=== PATIENT | female | born 1990 | race Caucasian/White ===

== ENCOUNTER 2016-07-09 20:57 | Emergency (ER) | payer OTHER ==
[~2016-07-09] VITALS: Ht 172.7 cm; Wt 120.2 kg
[~2016-07-09 20:57] MED LIST: DELTASONE20 MG PO; ZITHROMAX250 M2 PO
[2016-07-09] MEDS ORDERED: ATIVAN1 M1 PO (21:27)
[2016-07-09] MEDS ORDERED: BLISOVI FE 1.51 EACH PO (21:28)
--- NOTE | 2016-07-09 21:46 | ED UPPER/LOWER EXTREMITY COMPL ---
History of Present Illness General Chief Complaint: Upper Extremity Problem Stated Complaint: RT ARM PAIN X1 WEEK Source: patient Exam Limitations: no limitations Vital Signs & Intake/Output Vital Signs & Intake/Output Vital Signs Date Time Temp Pulse Resp B/P Pulse O2 O2 Flow FiO2 Ox Delivery Rate 07/09 2240 97.4 90 18 140/80 98 Room Air 07/092 97.3 82 18 137/83 98 Room Air Allergies Coded Allergies: animal dander (MAY TRIGGER ASTHMA 07/09/16) Reconcile Medications Lorazepam (Ativan) 1 MG TABLET 1 TAB PO TID ANXIETY (Reported) Naproxen (Naprosyn) 500 MG TABLET 1 TAB PO BID PRN PAIN/INFLAMMATION Norethindrone-E.estradiol-Iron (Blisovi Fe 1.5-30 Tablet) (Unknown Strength) TABLET 1 TAB PO DAILY CONTROL (Reported) Tylenol With Codeine (Tylenol With Codeine #3 Tablet) 300 MG-30 MG TABLET 1 TAB PO Q4-6 PRN PRN PAIN Triage Note: PT STATES THAT HER R ARM HAS BEEN ACHEY FOR THE PAST WEEK DENIES INJURY. CALLED HER PMD WHO TOLD HER TO COME TO ER Triage Nurses Notes Reviewed? 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 She states that she does a lot of repetitive motion at work, lifting heavy objects, using machinery with her right arm mostly and thinks that the symptoms may be work-related but does not recall any specific injury that occurred at work. She has pain with overhead use of the arm and was lifting the arm into the shoulder and radiates down the arm. She denies any neck pain. She is taking over-the- counter anti-inflammatory medication with minimal relief. It is better with rest. She has no weakness or numbness in the arm or wrist hand or elbow. She has no headaches or confusion. No rashes. No previous trauma to the area. (ELENA BRANNON) Past History Travel History Traveled to [place] past 21 day No Medical History Any Pertinent Medical History? 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 No (ELENA BRANNON) Review of Systems Review of Systems Constitutional: Reports: see HPI. EENTM: Reports: no symptoms. Respiratory: Reports: no symptoms. Cardiovascular: Reports: no symptoms. Gastrointestinal/Abdominal: Reports: no symptoms. Genitourinary: Reports: no symptoms. Musculoskeletal: Reports: see HPI. Skin: Reports: no symptoms. Neurological/Psychological: Reports: no symptoms. Hematologic/Endocrine: Reports: no symptoms. Immunological: Reports: no symptoms. All Other Systems: Reviewed and Negative (ELENA BRANNON) Physical Exam Physical Exam General Appearance: well developed/nourished Comments: Well-developed well-nourished no apparent distress. HEENT: Atraumatic, extraocular motion intact Neck: Supple, no lymphadenopathy Back: Nontender Respiratory: No respiratory distress Extremities: No edema, full range of motion Neuro: Alert and oriented x3 Psych: Mood affect normal, normal memory normal judgment. Skin: Warm and dry, no rash on exposed skin Right upper extremity, right shoulder: Tenderness to the anterior and lateral proximal humeral region, increased pain with range of motion of the shoulder overhead, positive Avina Erickson test with pain, mild impingement signs noted. Supraspinatus strength is 5 out of 5, no weakness of the right upper extremity, range of motion is full elbow wrist and hand, wrist exam is benign, no snuffbox tenderness, neurovascular intact right upper extremity, no skin surface changes. (ELENA BRANNON) Progress Differential Diagnosis: arterial insufficiency, cellulitis, CHF, compartment syndrome, contusion, dislocation, DVT, fracture, gout, septic arthritis, sprain, tendon injury Plan of Care: Orders Procedure Date/time Status XRY-SHOULDER COMPLETE-RIGHT 07/09 2140 Active Diagnostic Imaging: Viewed by Me: Radiology Read (r shoulder). Discussed w/RAD: Radiology Read (r shoulder). Radiology Impression: no acute abnormality, no fracture, no dislocation, no foreign body seen Comments: Likely rotator cuff tendinitis, x-ray is unremarkable, we'll treat with recommendation rest, NSAIDs, avoid overhead use and orthopedic follow-up. (ELENA BRANNON) Departure Departure Disposition: HOME OR SELF CARE Condition: Stable Clinical Impression Primary Impression: Right rotator cuff tendonitis Referrals: BLUE AHUMADA,MARCI BAKER MD,TONNY Allen (PCP/Family) Additional Instructions: Rest, ice, avoid overhead use Take Naprosyn for inflammation and Tylenol with codeine for pain Orthopedic follow-up, call to make an appointment Gradual return to activity as tolerated. Departure Forms: Customer Survey General Discharge Information Prescriptions: Current Visit Scripts Naproxen (Naprosyn) 1 TAB PO BID PRN PAIN/INFLAMMATION #30 TAB Tylenol With Codeine (Tylenol With Codeine #3 Tablet) 1 TAB PO Q4-6 PRN PRN PAIN #12 TAB (ELENA BRANNON) PA/MAYONNAISE MIXER Co-Sign Statement Statement: ED Attending supervision documentation- [] I saw and evaluated the patient. I have also reviewed all the pertinent lab results and diagnostic results. I agree with the findings and the plan of care as documented in the PA's/MAYONNAISE MIXER's documentation. [x] I have reviewed the ED Record and agree with the PA's/MAYONNAISE MIXER's documentation. [] Additions or exceptions (if any) to the PAs/MAYONNAISE MIXER's note and plan are summarized below: [] (EUSEBIO AHUMADA,BAYLEE Bennett)
[2016-07-09] MEDS ORDERED: TYLENOL WITH C1 EACH PO (22:32)
[2016-07-09] MEDS ORDERED: NAPROSYN500 M1 PO (22:32)
--- NOTE | 2016-07-09 22:38 | RADIOLOGY REPORT ---
EXAMINATION: XR SHOULDER, RIGHT CLINICAL INFORMATION: Right shoulder pain COMPARISON: None. TECHNIQUE: 4 views. FINDINGS: There are no fractures or dislocations. No bone, joint or soft tissue abnormality is demonstrated. IMPRESSION: Unremarkable examination.
[2016-07-09 22:40] VITALS: BP 140/80
== END 2016-07-09 23:27 ==
LOC: ERH 20:57
DX: M75.81 Other shoulder lesions, right shoulder (principal)
CPT/HCPCS: 73030-RT

== ENCOUNTER 2017-08-10 02:48 | Emergency (ER) | payer OTHER ==
[~2017-08-10] VITALS: Ht 172.7 cm; Wt 127.0 kg
[~2017-08-10 02:48] MED LIST changes: +ATIVAN1 M1 PO; +BLISOVI FE 1.51 EACH PO; +FLOMAX0.4 M1 PO; +IBUPROFEN600 M1 PO; +NAPROSYN500 M1 PO; +PERCOCET 5-3251 EACH PO; +TYLENOL WITH C1 EACH PO
--- NOTE | 2017-08-10 02:58 | ED GI/GU/ABDOMINAL COMPLAINT ---
History of Present Illness General Chief Complaint: Female Urogenital Problems Stated Complaint: "KIDNEY STONES SINCE 2199 YESTERDAY" Source: patient, old records Exam Limitations: no limitations Vital Signs & Intake/Output Vital Signs & Intake/Output Vital Signs Date Time Temp Pulse Resp B/P B/P Pulse O2 O2 Flow FiO2 Mean Ox Delivery Rate 08/10 0326 98 Room Air 08/10 0256 99.6 108 18 145/90 98 Room Air Allergies Coded Allergies: amoxicillin (vaginal yeast infection 07/27/17) animal dander (MAY TRIGGER ASTHMA 07/09/16) Reconcile Medications Ibuprofen 800 MG TABLET 1 TAB PO TID PRN PAIN Ibuprofen 600 MG TABLET 1 TAB PO Q6PRN PRN pain with food LORazepam (Ativan) 1 MG TABLET 1 TAB PO TID ANXIETY (Reported) Naproxen (Naprosyn) 500 MG TABLET 1 TAB PO BID PRN PAIN/INFLAMMATION Norethindrone-E.estradiol-Iron (Blisovi Fe 1.5-30 Tablet) (Unknown Strength) TABLET 1 TAB PO DAILY CONTROL (Reported) Oxycodone HCl/Acetaminophen (Percocet 5-325 MG Tablet) 5 MG-325 MG TABLET 1 TAB PO BID BREAKTHROUGH PAIN Oxycodone HCl/Acetaminophen (Percocet 5-325 MG Tablet) 5 MG-325 MG TABLET 1 TAB PO Q6P PRN severe pain Sulfamethoxazole/Trimethoprim (Bactrim Ds Tablet) 800 MG-160 MG TABLET 1 TAB PO BID PYELONEPHRITIS Tamsulosin HCl (Flomax) 0.4 MG CAP.ER.24H 1 CAP PO DAILY kidney stone Tylenol With Codeine (Tylenol With Codeine #3 Tablet) 300 MG-30 MG TABLET 1 TAB PO Q4-6 PRN PRN PAIN Triage Note: PT TO ER C/C 1 DAY HX OF RIGHT FLANK PAIN 04/15, STATES PAIN WOKE HER UP FROM SLEEP. DENIES DYSURIA. DENIES N/V/D. Triage Nurses Notes Reviewed? yes ? N Is pt currently ? No Onset: Abrupt Duration: hour(s): (several) Timing: multiple episodes today Location: right flank No Modifying Factors: none HPI: This is a 27-year-old female who presents via chief complaint of right flank pains 10:00 this evening. History is similar symptoms a few weeks ago was seen in the ER and diagnosed with kidney stones. Patient states she ran out of her pain medications and did not follow-up with urologist. Tonight the pain started again as sharp as it was before. Patient denies any fever or chills or shakes. No nausea or vomiting. Past History Travel History Traveled to [place] past 21 day No Medical History Any Pertinent Medical History? 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 No Review of Systems Review of Systems Constitutional: Denies: chills, fever. EENTM: Reports: no symptoms. Respiratory: Reports: no symptoms. Cardiovascular: Reports: no symptoms. GI: Denies: abdominal pain, nausea, vomiting. Genitourinary: Reports: frequency. Denies: discharge, dysuria. Musculoskeletal: Reports: back pain. Skin: Reports: no symptoms. Neurological/Psychological: Reports: no symptoms. Hematologic/Endocrine: Denies: bruising, bleeding, polyuria, polydipsia. Immunologic/Allergic: Reports: no symptoms. All Other Systems: Reviewed and Negative Physical Exam Physical Exam General Appearance: well developed/nourished, alert, awake, anxious, mild distress, moderate distress, obese Head: atraumatic, normal appearance Eyes: Bilateral: normal appearance, PERRL, EOMI. Ears, Nose, Throat, Mouth: hearing grossly normal, moist mucous membrane Neck: normal inspection, supple, full range of motion Respiratory: normal breath sounds, chest non-tender, no respiratory distress Cardiovascular: regular rate/rhythm Peripheral Pulses: 2+ radial (R), 2+ radial (L) Gastrointestinal: normal bowel sounds, soft, non-tender Back: CVA tenderness (R) Extremities: normal range of motion Neurologic/Psych: no motor/sensory deficits, awake, alert, oriented x 3, normal gait Skin: intact, normal color, warm/dry Core Measures ACS in differential dx? No Sepsis Present: No Sepsis Focused Exam Completed? No Progress Differential Diagnosis: Mariola-Liliya tear, UTI/pyelo Plan of Care: Orders Procedure Date/time Status Add-on Test (ER Only) 08/10 347 Active Add-on Test (ER Only) 08/10 345 Active BLOOD CULTURE 08/10 344 Active LACTIC ACID 08/10 320 Complete CULTURE,URINE 08/10 309 Active COMPREHENSIVE METABOLIC PANEL 08/10 309 Complete CBC WITHOUT DIFFERENTIAL 08/10 309 Complete URINE 08/10 256 Complete URINALYSIS 08/10 256 Complete Laboratory Tests 08/10/17 032: Anion Gap 15, Estimated GFR 60, BUN/Creatinine Ratio 10.9, Glucose 119 H, Lactic Acid 1.7, Calcium 9.7, Total Bilirubin 0.4, AST 17, ALT 36, Alkaline Phosphatase 84, Total Protein 7.6, Albumin 4.3, Globulin 3.3, Albumin/Globulin Ratio 1.3, CBC w Diff NO MAN DIFF REQ, RBC 4.71, MCV 91.7, MCH 30.0, MCHC 32.8 L, RDW 13.0, MPV 8.8, Gran % 74.4, Lymphocytes % 15.0 L, Monocytes % 8.9, Eosinophils % 1.6, Basophils % 0.1, Absolute Granulocytes 12.8 H, Absolute Lymphocytes 2.6, Absolute Monocytes 1.5 H, Absolute Eosinophils 0.3, Absolute Basophils 0 08/10/17309: Urinalysis HEAVY H, Urine Color YEL, Urine Clarity HAZY H, Urine pH 6.0, Ur Specific [place] 1.025, Urine Protein NEG, Urine Ketones NEG, Urine Nitrite NEG, Urine Bilirubin NEG, Urine Urobilinogen 0.2, Ur Leukocyte Esterase MOD H, Ur Microscopic SEDIMENT EXAMINED, Urine RBC 3-5, Urine WBC 50-75 H, Ur Epithelial Cells MANY H, Urine Bacteria MOD H, Urine Hemoglobin MOD H, Urine Glucose NEG , Urine Test NEGATIVE Microbiology 08/10 0438 BLOOD: Blood Culture - RECD 08/10 422 BLOOD: Blood Culture - RECD 08/10 309 URINE ROUT: Urine Culture - RECD RECENT IMAGING DONE. WILL CHECK CRE, UA. 5:10 am pain is almost resolved. No fever, non toxic appearing. iv ROCEPHIN, BLOOD CULTUERS ORDERED. STABLE FOR DISHARGE AT THIS TIME. She will call Dr. Granados on Friday and is aware to return for any fever 101 or greater, chills, vomiting or worsening symptoms. Initial ED EKG: none Departure Departure Time of Disposition: 516 Disposition: HOME OR SELF CARE Condition: Stable Clinical Impression Primary Impression: Pyelonephritis Secondary Impressions: Renal colic on right side Referrals: Kavon AHUMADA,Cain Funes MD,Mulugeta Allen (PCP/Family) Additional Instructions: Take the bactrim, percocet and ibuprofen as directed Use the urinary strainer as directed Drink plenty of fluids Call Dr. Granados on Friday for an appointment return immediately to the ER for fever, chills, vomiting, worsening symptoms Departure Forms: Customer Survey General Discharge Information Prescriptions: Current Visit Scripts Sulfamethoxazole/Trimethoprim (Bactrim Ds Tablet) 1 TAB PO BID #20 TAB Ibuprofen 1 TAB PO TID PRN PAIN #30 TAB Oxycodone HCl/Acetaminophen (Percocet 5-325 MG Tablet) 1 TAB PO BID #12 TAB
[2017-08-10 03:31] LABS: ABSOLUTE BASOPHIL COUNT 0 /CUMM (0.0-0.2); ABSOLUTE EOSINOPHIL COUNT 0.3 /CUMM (0.0-0.7); ABSOLUTE GRANULOCYTE CT 12.8 /CUMM (1.4-6.5); ABSOLUTE LYMPH COUNT 2.6 /CUMM (1.2-3.4); ABSOLUTE MONOCYTE COUNT 1.5 /CUMM (0.10-0.60); BASOPHIL % 0.1 % (0.0-2.0); EOSINOPHIL % 1.6 % (0-5); GRANULOCYTE % 74.4 % (42.2-75.2); HEMATOCRIT 43.2 % (37-47); MEAN CORPUSCULAR HGB CONC 32.8 G/DL (33.0-37.0); MEAN CORPUSCULAR VOLUME 91.7 FL (81.0-99.0); MEAN PLATELET VOLUME 8.8 FL (7.4-10.4); PLATELET COUNT 320 /CUMM (130-400); RED BLOOD CELL CT 4.71 /CUMM (4.20-5.40); WHITE BLOOD CELL COUNT 17.2 /CUMM (4.8-10.8)
[2017-08-10] MEDS ORDERED: IBUPROFEN800 M1 PO (05:18)
[2017-08-10] MEDS ORDERED: PERCOCET 5-3251 EACH PO (05:18)
[2017-08-10] MEDS ORDERED: BACTRIM DS TAB1 EACH PO (05:18)
[2017-08-10 05:42] VITALS: BP 138/56
[2017-08-13] MEDS ORDERED: PROAIR HFA8.5 GM INH (19:59)
== END 2017-08-10 05:43 ==
LOC: ERH 02:48
PROVIDERS: Emergency Medicine
DX: N12 Tubulo-interstitial nephritis, not specified as acute or chronic (principal); N23 Unspecified renal colic
CPT/HCPCS: 81001; 81025; 87040; 87086; 96361; 96374; 96375; J0696; J1885

== ENCOUNTER → 2017-08-15 | Day surgery (SDC) | payer OTHER ==
[~2017-08-15] VITALS: Ht 172.7 cm; Wt 127.0 kg
[~2017-08-15] MED LIST changes: +BACTRIM DS TAB1 EACH PO; +IBUPROFEN800 M1 PO; +PROAIR HFA8.5 GM INH
--- NOTE | 2017-08-15 11:13 | Operative Report ---
Operative/Inv Procedure Report Surgery Date: 08/15/17 Name of Procedure: bilateral ureteroscopy with stone removal and stent placement Pre-Operative Diagnosis: bilateral kidney stones with right renal colic Post-Operative Diagnosis: same Estimated Blood Loss: scant Surgeon/Pharmacy Clinical Coordinator: Maria Esther Lugo MD Anesthesia: laryngeal mask airway Drains: stent Complications: none Condition: stable Operative Indication: bilateral kidney stones with right renal colic Operative/Procedure Note Note: 27 yo female with a hx of right renal colic. She was found to have bilateral kidney stones on CT scan, 4mm distal ureteral stone with hydro on the right and 2 3mm stones on the left UP. She was given th risks, benefits and risks of the surgery in the office and then again in the holding area. She was consented after all questions were answered. She was taken to the operating room and placed in the supine position. LMA anesthesia was given and IV antibiotics infused after time out was performed. She was placed in the dorsal lithotomy position and a cystoscopy was performed. The bladder was globally inspected and no abnormalities were seen and her ureteral orifices were easily identified. Sensor guidewire was placed in the right side followed by a semi-rigid utereoscope. The stone was identified in the mid ureter and lasered before removing the fragments with a zero tip basket. A stent 6x24 cm was left in place using the Sensor guidewire to place it with cystoscopy. Attention was then turned to the left side. A Sensor wire was then placed and a Super stiff wire. The Superstiff wire was used to place an ureteral access sheath 25cm. A flexible ureteroscope was then placed into the renal pelvis and the "3mm stones" were identified in the upper pole. These both were larger and needed to be lasered as well. These were removed in succession after being freagmented. A stent 6x26 cm was placed. The stones were sent to pathology for stone analysis. The bladder was emptied. Patient tolerated the procedure well and was transferred to the recovery room in stable condition. Findings: right distal 4mm stone with hydronephrosis left renal UP stones x2, 4mm in size jagged Discharge Disposition: PACU
--- NOTE | 2017-08-15 14:45 | RADIOLOGY REPORT ---
EXAMINATION: Intraoperative fluoroscopy CLINICAL INFORMATION: Bilateral ureteroscopically with lithotripsy and stent insertion COMPARISON: CT abdomen and pelvis 07/27/2017 TECHNIQUE: Intraoperative fluoroscopy was provided for use by Dr. Lugo. A total of 10 images were saved to PACS. TOTAL FLUOROSCOPIC TIME: 18 seconds FINDINGS\E\IMPRESSION: Intraoperative fluoroscopy provided for use by Dr. Lugo. Please see operative note for detailed findings.
== END ==
LOC: STS 01:37
DX: N13.2 Hydronephrosis with renal and ureteral calculous obstruction (principal); F17.200 Nicotine dependence, unspecified, uncomplicated
CPT/HCPCS: 74018; 81025; C2617; J0131; J0690; J2250; J2405

== ENCOUNTER → 2017-08-22 | Day surgery (SDC) | payer OTHER ==
[~2017-08-22] VITALS: Ht 172.7 cm; Wt 121.6 kg
--- NOTE | 2017-08-22 17:09 | Operative Report ---
Operative/Inv Procedure Report Surgery Date: 08/22/17 Name of Procedure: left ureteroscopy with migrated stent removal Pre-Operative Diagnosis: migrated left ureteral stent Post-Operative Diagnosis: same Estimated Blood Loss: scant Surgeon/Wardrobe Consultant: Maria Esther Lugo MD Anesthesia: local monitored anesthesi Specimens: left ureteral stent Complications: none Condition: stable Operative Indication: migrated left ureteral stent after URS the previous week, unable to remove stent in office bc not visible with cystoscopy Operative/Procedure Note Note: This an operative dictation on patient Greyson Zuñiga. She was seen in the office for bilateral stent removal earlier in the week after having ureteroscopy with laser lithotripsy of bilateral stones. The right stent was easily removed however the left stent had migrated up the ureter. The stent was no longer visible cystoscopically. One blind attempt was performed in the office without success. As result the patient was consented for ureteroscopy and the operative theater with stent removal under direct visualization. She was given the risks benefits and alternatives and informed that it was much sphincter safer to do this in the operating room with visualization. All questions were answered. Patient was identified in the holding area and brought to the operating room placed on the operating table in the supine position. IV sedation was given. No IV antibiotics were given. She was prepped and draped in the standard sterile fashion. Semirigid ureteroscope was placed into the bladder and gently placed into the left ureteral orifice. The distal portion of the stent was seen in the distal ureter. This was grasped and gently removed without difficulty. The bladder was emptied and the patient was cleaned of the Betadine solution. She was transferred to the recovery room stable condition. The stent was sent off as a specimen. Findings: migrated ureteral stent visible with ureteroscope and removed with grasper Discharge Disposition: Same Day Admissions
== END ==
LOC: STS 02:36
DX: T83.89XA Other specified complication of genitourinary prosthetic devices, implants and grafts, initial encounter (principal); Z87.442 Personal history of urinary calculi; F17.200 Nicotine dependence, unspecified, uncomplicated; J45.909 Unspecified asthma, uncomplicated
CPT/HCPCS: 81025; J0690; J2250

== ENCOUNTER 2017-09-01 05:37 | Emergency (ER) | payer OTHER ==
[~2017-09-01] VITALS: Ht 172.7 cm; Wt 120.2 kg
--- NOTE | 2017-09-01 05:42 | ED DYSPNEA/ASTHMA COMPLAINT ---
History of Present Illness General Chief Complaint: Wheezing/Asthma Stated Complaint: BIBA WHEEZING Source: patient, old records Exam Limitations: no limitations Vital Signs & Intake/Output Vital Signs & Intake/Output Vital Signs Date Time Temp Pulse Resp B/P B/P Pulse O2 O2 Flow FiO2 Mean Ox Delivery Rate 09/01 0544 97.5 96 20 156/84 97 Room Air Allergies Coded Allergies: amoxicillin (vaginal yeast infection 09/01/17) animal dander (MAY TRIGGER ASTHMA 09/01/17) Reconcile Medications Albuterol Sulfate (Proair Hfa) 90 MCG HFA.AER.AD 2 PUF INH AD PRN ASTHMA ( Reported) Ibuprofen 800 MG TABLET 1 TAB PO TID PRN PAIN LORazepam (Ativan) 1 MG TABLET 1 TAB PO TID ANXIETY (Reported) Norethindrone-E.estradiol-Iron (Blisovi Fe 1.5-30 Tablet) (Unknown Strength) TABLET 1 TAB PO DAILY CONTROL (Reported) Oxycodone HCl/Acetaminophen (Percocet 5-325 MG Tablet) 5 MG-325 MG TABLET 1 TAB PO BID BREAKTHROUGH PAIN Prednisone 10 MG TABLET 1 TAB PO DAILY ASTHMA TAKE 3 TABS FOR 3 DAYS THEN TAKE 2 TABS FOR 3 DAYS THEN TAKE 1 TAB FOR 3 DAYS Sulfamethoxazole/Trimethoprim (Bactrim Ds Tablet) 800 MG-160 MG TABLET 1 TAB PO BID PYELONEPHRITIS Triage Nurses Notes Reviewed? yes HPI: Patient presents with an asthma exacerbation started earlier this afternoon. Positive shortness of breath. Positive chest tightness. No nausea or vomiting. Positive nonproductive cough. No fevers or chills. She took 20 mg of prednisone and still does not feel also comes in for evaluation. Past History Travel History Traveled to [place] past 21 day No Medical History Any Pertinent Medical History? 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 No Review of Systems Review of Systems Constitutional: Reports: no symptoms. EENTM: Reports: no symptoms. Respiratory: Reports: see HPI, cough, short of breath, wheezing. Cardiovascular: Reports: no symptoms. GI: Reports: no symptoms. Genitourinary: Reports: no symptoms. Musculoskeletal: Reports: no symptoms. Skin: Reports: no symptoms. Neurological/Psychological: Reports: no symptoms. Hematologic/Endocrine: Reports: no symptoms. Immunologic/Allergic: Reports: no symptoms. All Other Systems: Reviewed and Negative Physical Exam Physical Exam General Appearance: well developed/nourished, alert, awake, mild distress Head: atraumatic, normal appearance Eyes: Bilateral: PERRL, EOMI. Ears, Nose, Throat: normal pharynx, normal ENT inspection, hearing grossly normal Neck: normal inspection, supple, full range of motion, NO JVD Respiratory: decreased breath sounds, wheezing, respiratory distress Cardiovascular: regular rate/rhythm, normal peripheral pulses Neurologic/Psych: no motor/sensory deficits, awake, alert, oriented x 3 Skin: intact, normal color, warm/dry Core Measures ACS in differential dx? No CVA/TIA Diagnosis No Sepsis Present: No Sepsis Focused Exam Completed? No Progress Differential Diagnosis: asthma, bronchitis Plan of Care: Current Medications Sig/Fabiola Start time Last Medication Dose Stop Time Status Admin Albuterol Sulfate 3 ML ONCE ONE 09/01 599 UNVr (Proventil) 09/01 600 Ipratropium Page 2.5 ML ONCE ONE 09/01 599 UNVr (Atrovent) 09/01 600 Prednisone 40 MG ONCE ONE 09/01 599 UNVr 09/01 600 Diagnostic Imaging: Viewed by Me: Radiology Read. Discussed w/RAD: Radiology Read. Initial ED EKG: none Departure Departure Disposition: HOME OR SELF CARE Condition: Stable Clinical Impression Primary Impression: Asthma Referrals: Mulugeta Funes MD, V. (PCP/Family) Additional Instructions: TAKE PREDNISONE PRESCRIBED RETURN IF SYMPTOMS WORSEN OR FOR ANY CONCERNS Departure Forms: Customer Survey General Discharge Information Prescriptions: Current Visit Scripts Prednisone 1 TAB PO DAILY #18 TAB TAKE 3 TABS FOR 3 DAYS THEN TAKE 2 TABS FOR 3 DAYS THEN TAKE 1 TAB FOR 3 DAYS Critical Care Note Critical Care Note Critical Care Time: non-applicable
[2017-09-01 05:44] VITALS: BP 156/84
[2017-09-01] MEDS ORDERED: PREDNISONE10 M2 PO (06:15)
== END 2017-09-01 06:45 ==
LOC: ERH 05:37
DX: J45.909 Unspecified asthma, uncomplicated (principal); R07.89 Other chest pain
CPT/HCPCS: 1263